=== PATIENT | male | born 1985 | race Caucasian/White ===

== ENCOUNTER 2018-04-03 10:37 | Emergency (ER) ==
[2018-04-03 10:43] VITALS: BP 146/95; TEMP 98.3; BMI 37.8
[2018-04-03] MEDS ORDERED: TORADOL IM STA (11:33)
[2018-04-03] MEDS ORDERED: TORADOL IVP STA (11:34)
[2018-04-03] MEDS ORDERED: ZOFRAN 4 MG/2 ML IVP STA (11:34)
--- NOTE | 2018-04-03 11:34 | ED.PDOC ---
General ED Provider: Dr. OLIVE JONES Chief Complaint: Back Pain Stated Complaint: onset pain to left flank/back 2 days ago--progressively worse- now has trouble voiding--pain constant but intensifies at times--hx kidney stone in past Time Seen by Physician: 11:30 Mode of Arrival: Walk-In Information Source: Patient Exam Limitations: No limitations Referred to ED by: PCP Nursing and Triage Documentation Reviewed and Agree: Yes Does patient meet sepsis criteria?: No System Inflammatory Response Syndrome: Not Applicable Sepsis Protocol: For patient's 13 years and over: Temp is 96.8 and below OR 101 and greater Pulse >90 BPM Resp >20/minute Acutely Altered Mental Status Are patient's symptoms suggestive of a new infection, such as: -Pneumonia -Skin, Soft Tissue -Endocarditis -UTI -Bone, Joint Infection -Implantable Device -Acute Abdominal Infection -Wound Infection -Meningitis -Blood Stream Catheter Infection -Unknown Complaint Exam - Complaint/Exam Onset/Duration: 2 days Symptoms Are: Still present (Pain in Lt Flank and CVA region) Initial Severity: Moderate Current Severity: Severe Location of Pain: Reports: Diffuse, Left, Flank Character: Reports: Colicky Aggravating: Reports: Palpation Alleviating: Reports: None Associated Signs and Symptoms: Reports: Back pain Related History: Reports: Similar episode Testicular Torsion Risk Factors: Reports: None Surgical Obstruction Risk Factors: Reports: None Related Surgical History: Reports: Lithotripsy Abdominal Findings: Present: None, CVA Tenderness Differential Diagnoses: Ureteral Calculi Review of Systems - Review Of Systems Constitutional: Reports: No symptoms Eyes: Reports: No symptoms Ears, Nose, Mouth, Throat: Reports: No symptoms Respiratory: Reports: No symptoms Cardiac: Reports: No symptoms GI: Reports: No symptoms : Reports: No symptoms, Flank pain, Pain Musculoskeletal: Reports: Back pain Skin: Reports: No symptoms Neurological: Reports: No symptoms Endocrine: Reports: No symptoms Hematologic/Lymphatic: Reports: No symptoms All Other Systems: Reviewed and Negative Past Medical History - Past Medical History Previously Healthy: Yes Endocrine: Reports: None Cardiovascular: Reports: None Respiratory: Reports: None Hematological: Reports: None Gastrointestinal: Reports: None Genitourinary: Reports: None Neuro/Psych: Reports: None Musculoskeletal: Reports: None Cancer: Reports: None - Surgical History General Surgical History: Reports: None - Family History Family History: Reports: None - Social History Smoking Status: Current every day smoker, Heavy tobacco smoker Hx Substance Use: No Alcohol Screening: None Physical Exam - Physical Exam Appearance: Ill-appearing, Obese Ill-appearing: Moderate Pain Distress: Severe Eyes: TERESITA, EOMI, Conjunctiva clear ENT: Ears normal, Nose normal, Oropharynx normal Neck: Supple Respiratory: Airway patent, Breath sounds clear, Breath sounds equal, Respirations nonlabored Cardiovascular: RRR, Pulses normal, No rub, No murmur GI/: Soft, Nontender, No masses, Bowel sounds normal, No Organomegaly, Tender (LT flank) Musculoskeletal: Normal strength, ROM intact, No edema, No calf tenderness, Limited ROM (L-S guarding to tenderness) Skin: Warm, Dry, Normal color Neurological: Sensation intact, Motor intact, Reflexes intact, Cranial nerves intact, Alert, Oriented Psychiatric: Affect appropriate, Mood appropriate Interpretation - Radiology Interpretation Radiology Interpretation By: Radiologist Radiology Results: No acute changes Re-Evaluation - Re-Evaluation Time of Re-Evaluation: 13:10 Status: Worse Vital Signs Stable: Yes Pain Level: 7/10 now located lt lower back near lumbar-sacral SI joinr Appearance: NAD Lungs: Clear Skin: Warm and Dry Neuro: Alert and Oriented X3 CV: RRR Critical Care Note - Critical Care Note Total Time (mins): 0 Course - Course Hematology/Chemistry: 04/03/18 10:50 04/03/18 10:50 Orders, Labs, Meds: Lab Review 04/03/18 04/03/18 04/03/18 10:50 10:50 10:50 WBC 12.18 H RBC 5.57 Hgb 16.2 Hct 48.3 MCV 86.7 MCH 29.1 MCHC 33.5 RDW Coeff of [place] 12.6 Plt Count 354 Immature Gran % (Auto) 0.2 Neut % (Auto) 74.2 Lymph % (Auto) 16.5 [place] % (Auto) 7.0 Eos % (Auto) 1.6 Baso % (Auto) 0.5 Immature Gran # (Auto) 0.0 Neut # (Auto) 9.0 H Lymph # (Auto) 2.0 [place] # (Auto) 0.9 Eos # (Auto) 0.2 Baso # (Auto) 0.1 Sodium 139 Potassium 3.6 Chloride 105 Carbon Dioxide 24 Anion Gap 13.6 BUN 9 Creatinine 0.79 Estimated GFR (MDRD) 114.00 BUN/Creatinine Ratio 11.39 Glucose 124 H Calcium 10.0 Total Bilirubin 0.4 AST 12 L ALT 24 Alkaline Phosphatase 80 Total Protein 7.8 Albumin 3.6 Globulin 4.2 Albumin/Globulin Ratio 0.86 Urine Color Yellow Urine Clarity Cloudy Urine pH 7.5 Ur Specific Stamps 1.015 Urine Protein Negative Urine Glucose (UA) Negative Urine Ketones Negative Urine Blood 3+ Urine Nitrite Negative Urine Bilirubin Negative Urine Urobilinogen 1.0 Ur Leukocyte Esterase Negative Urine Microscopic RBC Tntc Ur Squamous Epith Cells Not present Calcium Oxalate Crystal 1+ Amorphous Sediment 1+ Orders Category Date Time Status CBC W/ AUTO DIFF Stat LAB 04/03/18 10:50 Completed CMP [COMPREHENSIVE METABOLIC PANEL] Stat LAB 04/03/18 10:50 Completed UA [URINALYSIS C & S IF INDICATED] Stat LAB 04/03/18 10:50 Completed Hydrocodone Bit/Acetaminophen [[place] 10-325] MEDS 04/03/18 13:24 Discontinued 1 tab PO ONCE STA Ketorolac Tromethamine [Toradol] MEDS 04/03/18 11:34 Discontinued 30 mg IVP ONCE STA Ondansetron HCl/Pf [Zofran 4 mg/2 ml] MEDS 04/03/18 11:34 Discontinued 4 mg IVP ONCE STA Orphenadrine Citrate [Norflex] MEDS 04/03/18 13:23 Discontinued [address] ABD/PEL WO RENAL STONE PROT Stat RADS 04/03/18 11:[address] LUMBAR SPINE W/O CONTRAST Stat RADS 04/03/18 13:20 Completed Medications Discontinued Medications Generic Name Dose Route Start Last Admin Trade Name Juliana PRN Reason Stop Dose Admin Hydrocodone Bitart/Acetaminophen 1 tab 04/03/18 13:24 04/03/18 13:38 [place] 10-325 PO 04/03/18 13:25 1 tab ONCE STA Administration Ketorolac Tromethamine 30 mg 04/03/18 11:34 04/03/18 11:46 Toradol IVP 04/03/18 11:35 30 mg ONCE STA Administration Ondansetron HCl 4 mg 04/03/18 11:34 04/03/18 11:44 Zofran 4 Mg/2 Ml IVP 04/03/18 11:35 4 mg ONCE STA Administration Orphenadrine Citrate 60 mg 04/03/18 13:23 04/03/18 13:47 Norflex IVP 04/03/18 13:24 60 mg ONCE STA Administration Vital Signs: Temp Pulse Resp BP Pulse Ox 04/03/18 10:37 98.3 F 107 H 20 146/95 H 98 Departure - Departure Time of Disposition: 15:30 Disposition: HOME SELF-CARE Discharge Problem: Flank pain, Back pain at L4-L5 level, Neural foraminal stenosis of lumbar spine , Renal colic, Hematuria Instructions: Renal Colic (ED), Acute Low Back Pain (ED), Arthralgia (ED), Lower Back Exercises (ED) Condition: Good Pt referred to PMD for follow-up: Yes (See PCP) IPMP verified?: No Additional Instructions: Take meds as directed Force fluids Apply ice pack to area of low back pain See PCP for follow up and to have urine rechecked for the blood in URINE or urological care Monitor BP as out patient and if is elevated greater than 140/90 seek treatment at pcp office Prescriptions: Cyclobenzaprine HCl [Flexeril] 10 mg PO TID PRN #20 tablet PRN Reason: Relief of back pain Ketorolac Tromethamine [Toradol] 10 mg PO Q6H PRN #20 tablet PRN Reason: Low pain Allergies/Adverse Reactions: Allergies No Known Allergies Allergy (Unverified 04/03/18 10:45) Home Medications: Ambulatory Orders Cyclobenzaprine HCl [Flexeril] 10 mg PO TID PRN #20 tablet 04/03/18 Ketorolac Tromethamine [Toradol] 10 mg PO Q6H PRN #20 tablet 04/03/18 Disposition Discussed With: Patient Additional Information: Re evaluation of pain and seems to be complaining of pain in LT Lumbar-Sacral region Toradol helped but not great degree Explained results of testing
--- NOTE | 2018-04-03 12:25 | CT ---
EXAM: CT of the abdomen pelvis without contrast History: Left flank pain. Comparison: None available. Technique: Multiplanar CT images through the abdomen pelvis were obtained without the administration of IV contrast Findings: Lung bases are free of consolidation. No acute osseous abnormalities. Status post cholecystectomy. No focal liver or splenic lesions. No peripancreatic inflammation. Ad renal glands are unremarkable. No renal stones and no hydronephrosis. The appendix is normal. No u reteral calculi. No perinephric stranding. No dilated loops of bowel. No bladder wall thickening. Prostate is not enlarged. No perirectal inflammation. No free air and no ascites. No inflammatory stranding. Impression: No acute intra-abdominal or pelvic process.
[2018-04-03] MEDS ORDERED: NORFLEX IVP STA (13:23)
[2018-04-03] MEDS ORDERED: NORCO 10-325 PO STA (13:24)
--- NOTE | 2018-04-03 14:07 | CT ---
EXAM: CT of the lumbar spine without contrast History: Left sacroiliac joint pain. Technique: Multiplanar CT images through the lumbar spine were obtained without the administration o f IV contrast Findings: No acute fracture or subluxation of the lumbar spine. Moderate disc space narrowing at T11-T12 with prominent anterior osteophytes. Disc space heights within the lumbar spine are preserved. Bony spin al canal is not compromised. Small disc bulge at L4-L5 with no significant central canal stenosis. There is moderate left-sided bony neural foraminal narrowing at L5-S1 secondary to facet hypertrophy. Bilateral sacroiliac joints appear intact with no significant sclerosis and no erosive osseous rahman ges. Impression: 1. No acute osseous abnormality of the lumbar spine. 2. Intact bilateral sacroiliac joints. 3. Moderate left-sided neural foraminal narrowing at L5-S1. If symptoms persist, recommend further evaluation with MRI.
== END 2018-04-03 15:55 | disposition home or self-care (01) ==
LOC: ED 10:37
DX: N23 Unspecified renal colic (principal); R31.9 Hematuria, unspecified; M48.061 Spinal stenosis, lumbar region without neurogenic claudication; M54.5 Low back pain; R10.9 Unspecified abdominal pain; Z87.442 Personal history of urinary calculi; F17.210 Nicotine dependence, cigarettes, uncomplicated; R03.0 Elevated blood-pressure reading, without diagnosis of hypertension
CPT/HCPCS: 36415; 74176; 80053; 81001; 85025; 96374; 96375; 99283

== ENCOUNTER 2018-10-03 01:38 | Emergency (ER) ==
[2018-10-03 01:53] VITALS: BP 135/90; TEMP 99.4; BMI 40.7
--- NOTE | 2018-10-03 02:03 | ED.PDOC ---
General ED Provider: Dr. OLIVE WRAY MD Chief Complaint: Tooth Problem Stated Complaint: toothache Time Seen by Physician: 02:00 Mode of Arrival: Walk-In Information Source: Patient Exam Limitations: No limitations Nursing and Triage Documentation Reviewed and Agree: Yes Does patient meet sepsis criteria?: No If yes, has appropriate treatment been initiated?: Yes System Inflammatory Response Syndrome: Not Applicable Sepsis Protocol: For patient's 13 years and over: Temp is 96.8 and below OR 101 and greater Pulse >90 BPM Resp >20/minute Acutely Altered Mental Status Are patient's symptoms suggestive of a new infection, such as: -Pneumonia -Skin, Soft Tissue -Endocarditis -UTI -Bone, Joint Infection -Implantable Device -Acute Abdominal Infection -Wound Infection -Meningitis -Blood Stream Catheter Infection -Unknown Review of Systems - Review Of Systems Constitutional: Reports: No symptoms Eyes: Reports: No symptoms Ears, Nose, Mouth, Throat: Reports: No symptoms Respiratory: Reports: No symptoms Cardiac: Reports: No symptoms GI: Reports: No symptoms : Reports: No symptoms Musculoskeletal: Reports: No symptoms Skin: Reports: No symptoms Neurological: Reports: No symptoms Endocrine: Reports: No symptoms Hematologic/Lymphatic: Reports: No symptoms All Other Systems: Reviewed and Negative Past Medical History - Past Medical History Previously Healthy: Yes Endocrine: Reports: None Cardiovascular: Reports: None Respiratory: Reports: None Hematological: Reports: None Gastrointestinal: Reports: None Genitourinary: Reports: None Neuro/Psych: Reports: None Musculoskeletal: Reports: None Cancer: Reports: None - Surgical History General Surgical History: Reports: None - Family History Family History: Reports: None - Social History Smoking Status: Current every day smoker, Heavy tobacco smoker Hx Substance Use: No Alcohol Screening: None - Immunizations Tetanus Shot up to Date: Yes (2016) Physical Exam - Physical Exam Appearance: Well-appearing, No pain distress, Well-nourished, Obese Pain Distress: Mild Eyes: TERESITA ENT: Erythema Neck: Supple Respiratory: Airway patent, Breath sounds clear, Breath sounds equal, Respirations nonlabored Cardiovascular: RRR, Pulses normal, No rub, No murmur GI/: Soft, Nontender, No masses, Bowel sounds normal, No Organomegaly Musculoskeletal: Normal strength, ROM intact, No edema, No calf tenderness Skin: Warm, Dry, Normal color Neurological: Sensation intact, Motor intact, Reflexes intact, Cranial nerves intact, Alert, Oriented Psychiatric: Affect appropriate, Mood appropriate, Anxious Critical Care Note - Critical Care Note Total Time (mins): 0 Course - Course Vital Signs: Temp Pulse Resp BP Pulse Ox 10/03/18 01:47 99.4 F 90 20 135/90 96 Departure - Departure Time of Disposition: 02:07 Disposition: HOME SELF-CARE Discharge Problem: Toothache Instructions: Toothache (ED) Condition: Good Pt referred to PMD for follow-up: Yes (dentist) IPMP verified?: No Prescriptions: Amoxicillin 500 mg PO BID 7 Days #14 capsule NS Allergies/Adverse Reactions: Allergies No Known Allergies Allergy (Verified 10/03/18 01:39) Home Medications: Ambulatory Orders Amoxicillin 500 mg PO BID 7 Days #14 capsule NS 10/03/18 Transfer Form Completed: No Disposition Discussed With: Patient, Family
[2018-10-03] MEDS: LIDOCAINE HCL 1% SDV IM STA (02:18)
[2018-10-03] MEDS: ROCEPHIN IM STA (02:18)
[2018-10-03] MEDS: TORADOL IM STA (02:19)
== END 2018-10-03 02:45 | disposition home or self-care (01) ==
LOC: ED 01:38
DX: K08.89 Other specified disorders of teeth and supporting structures (principal); F17.210 Nicotine dependence, cigarettes, uncomplicated
CPT/HCPCS: 96372; 99282